=== PATIENT | female | born 1935 | race African-American/Black ===

== ENCOUNTER → 2017-04-01 | Outpatient (CLI) | payer MEDICARE ==
[~2017-04-01] MED LIST: BACL10TA PO; ST J81CH PO; TAB-TAB PO
[2017-04-01 15:44] LABS: BASOPHIL % 0.7 % (0.0-2.0); EOSINOPHIL # 0.1 TH/MM3 (0-0.4); EOSINOPHIL % 1.4 % (0.0-4.0); HEMATOCRIT 33.1 % (35.0-46.0); HEMO FLAGS DIFF FINAL; LYMPHOCYTE # 1.7 TH/MM3 (1.0-4.8); MEAN CORPUSCULAR HEMOGLOBIN 31.1 PG (27.0-34.0); MEAN CORPUSCULAR HGB CONC 33.9 % (32.0-36.0); MONO % 5.1 % (0.0-8.0); NEUT % 58.8 % (16.0-70.0); PLATELET COUNT 171 TH/MM3 (150-450); RED CELL DISTRIBUTION WIDTH 13.5 % (11.6-17.2); WHITE BLOOD COUNT 5.1 TH/MM3 (4.0-11.0)
[2017-04-01 15:58] LABS: CHLORIDE 106 MEQ/L (98-107); POTASSIUM 4.5 MEQ/L (3.5-5.1); SODIUM (NA) 139 MEQ/L (136-145)
[2017-04-01 16:16] LABS: ALKALINE PHOSPHATASE 61 U/L (45-117); ALT (GPT) 26 U/L (10-53); ANION GAP 6 MEQ/L (5-15); AST (GOT) 20 U/L (15-37); BLOOD UREA NITROGEN 11 MG/DL (7-18); GLOMERULAR FILTRATION RATE 62 ML/MIN (>89); GLUCOSE,FASTING 80 MG/DL (74-99); HDL CHOLESTEROL 55.3 MG/DL (40.0-60.0); LDL CHOLESTEROL 105 MG/DL (0-99); TOTAL BILIRUBIN ADULT 0.3 MG/DL (0.2-1.0)
== END ==
LOC: PLAB 11:06
PROVIDERS: ATTEND Internal Medicine
DX: Z98.890 Other specified postprocedural states (principal); Z85.841 Personal history of malignant neoplasm of brain; Z85.038 Personal history of other malignant neoplasm of large intestine
CPT/HCPCS: 36415; 80053; 80061; 84443; 85025

== ENCOUNTER 2017-04-22 12:50 | Day surgery (SDC) | payer MEDICARE ==
[2017-04-22 14:10] VITALS: BP 167/88; PULSE 72; RESP 16; TEMP 98.1; O2SAT 100
[2017-04-22 14:30] VITALS: BP 163/85; PULSE 70; RESP 16; O2SAT 100
[2017-04-22 14:45] VITALS: BP 163/85; PULSE 70; RESP 16; O2SAT 100
[2017-04-22 14:47] VITALS: BP 145/75; PULSE 68; RESP 18; TEMP 98.2; O2SAT 100
[2017-04-22] MEDS ORDERED: LIDOCAINE HCL 1% PF 30 ML VIAL ONE (16:53)
--- NOTE | 2017-04-22 17:20 | RADRPT ---
EXAM DATE/TIME: 04/22/2017 13:00 [facility] COMPARISON: No previous studies available for comparison. EXTERNAL COMPARISON: [facility], US THYROID, Apr 12 2017 INDICATIONS : Thyroid nodules. MEDICAL HISTORY : Arthritis. Carcinoma, colon. Chemotherapy. Radiation therapy. Blood transfusion. SURGICAL HISTORY : Hysterectomy. Bowel resection. Laminectomy. Menigioma right forehead. ENCOUNTER: Initial ACUITY: 2 weeks PAIN SCORE: 0/10 LOCATION: Left neck ORGAN: Left thyroid lobe SPECIMENS: Four fine needle aspirate(s) submitted for pathologic evaluation. DEVICE: 22 gauge needle Post procedure scanning reveals no hematoma or other complication. The possibility does exist that the tissue obtained will be non-diagnostic. If the sample is non-carolyne gnostic a repeat biopsy or surgical biopsy may need to be performed. TECHNIQUE: 1. Ultrasound guidance for needle biopsy. 2. Needle biopsy. The risks, benefits, and alternatives to ultrasound guided needle biopsy were explained to the patien t in detail including the risk of bleeding and infection. Written and verbal informed consent was ob tained. With the patient on the ultrasound table, images were obtained. Overlying skin was prepped and drape d in the usual sterile fashion and Lidocaine was utilized as a local anesthetic. A needle was advanced into the identified target and the number of specimens as above obtained and castillo bmitted for pathologic evaluation. The patient tolerated the procedure well and left the ultrasound suite in stable condition. CONCLUSION: Uncomplicated ultrasound guided needle biopsy. Dallin Malave MD on April 22, 2017 at 17:18 Board Certified Radiologist. This report was verified electronically.
--- NOTE | 2017-04-22 17:20 | RADRPT ---
EXAM DATE/TIME: 04/22/2017 13:00 [facility] COMPARISON: No previous studies available for comparison. INDICATIONS : Thyroid nodules. MEDICAL HISTORY : Arthritis. Carcinoma, colon. Chemotherapy. Radiation therapy. SURGICAL HISTORY : Hysterectomy. Bowel resection. Laminectomy. Menigioma right forehead. ENCOUNTER: Initial ACUITY: 2 weeks PAIN SCORE: 0/10 LOCATION: Right neck ORGAN: Right thyroid lobe SPECIMENS: Four fine needle aspirate(s) submitted for pathologic evaluation. DEVICE: 22 gauge needle Post procedure scanning reveals no hematoma or other complication. The possibility does exist that the tissue obtained will be non-diagnostic. If the sample is non-carolyne gnostic a repeat biopsy or surgical biopsy may need to be performed. TECHNIQUE: 1. Ultrasound guidance for needle biopsy. 2. Needle biopsy. The risks, benefits, and alternatives to ultrasound guided needle biopsy were explained to the patien t in detail including the risk of bleeding and infection. Written and verbal informed consent was ob tained. With the patient on the ultrasound table, images were obtained. Overlying skin was prepped and drape d in the usual sterile fashion and Lidocaine was utilized as a local anesthetic. A needle was advanced into the identified target and the number of specimens as above obtained and castillo bmitted for pathologic evaluation. The patient tolerated the procedure well and left the ultrasound suite in stable condition. CONCLUSION: Uncomplicated ultrasound guided needle biopsy. Dallin Malave MD on April 22, 2017 at 17:18 Board Certified Radiologist. This report was verified electronically.
== END 2017-04-22 14:50 | disposition home or self-care (01) ==
LOC: HRAD 12:50 → HRIP 12:50 → HRAD 14:50
PROVIDERS: ATTEND Internal Medicine
DX: E04.2 Nontoxic multinodular goiter (principal); Z85.038 Personal history of other malignant neoplasm of large intestine
CPT/HCPCS: 10022; 76942; 88172; 88173